=== PATIENT | male | born 1990 | race Hispanic/Latino ===

== ENCOUNTER 2018-05-26 08:20 | Outpatient (CLI) | payer OTHER ==
[2018-05-26] MEDS ORDERED: Gadobenate Dimeglumine 529 MG/1 ML (20ML VIAL) ONE ×2 (08:45→10:44)
[2018-05-26] MEDS ORDERED: EPINEPHrine 1 MG/ML AMP ONE (08:45)
[2018-05-26] MEDS ORDERED: Lidocaine 1% (PF) 30 ML VIAL ONE (08:45)
[2018-05-26] MEDS ORDERED: Iopamidol 300 61% 50 ML VIAL FS ONE (08:45)
--- NOTE | 2018-05-26 14:26 | RAD ---
RIGHT SHOULDER ARTHROGRAM: 05/26/18 HISTORY: 28-year-old male with history of right shoulder pain. FLUOROSCOPY TIME: 0.8 minutes. DOSE: 117.2 uGy*m2. Following informed consent, the right shoulder was prepped and draped in the usual sterile fashion. L ocal anesthesia was obtained with 1% Xylocaine. A 22 gauge spinal needle was introduced in the anteri or superior glenohumeral joint. A mixture of iodinated and gadolinium contrast media was injected and confirmed to be intra-articular. No evidence for dago extension into the subacromial bursa. IMPRESSION: Successful right shoulder arthrogram. Patient tolerated the procedure well and is moved to MRI for po st arthrogram MRI to followup. POS: ABEL
--- NOTE | 2018-05-26 16:00 | MRI ---
RIGHT SHOULDER MRI POST ARTHROGRAM CONTRAST: 05/26/18 HISTORY: 28-year-old male with history of right shoulder pain. Exam performed following a right shoulder arthrogram. Rotator cuff appears intact. Very mild degenerative changes are noted of the AC joint with very sligh t downsloping of the lateral acromion with some very mild fluid and fat stranding in the subacrominal bursa. No evidence for rotator cuff tear. The visualized labrum appears unremarkable. Rotator cuff m uscles are within normal limits of signal and volume. There is a fairly prominent superior anterior f oramen incidentally noted. IMPRESSION: Mild AC joint arthrosis with minute fluid and some fat stranding in the subacrominal subdeltoid bursa . No evidence for rotator cuff or labral tear. No evidence for other significant acute internal deran gement. Subscapularis and biceps tendons are intact. POS: ABEL
== END 2018-05-26 08:21 | disposition home or self-care (01) ==
LOC: RAD 08:20
PROVIDERS: ATTEND Orthopaedic Surgery
DX: M25.511 Pain in right shoulder (principal); M19.011 Primary osteoarthritis, right shoulder
CPT/HCPCS: 23350; A9579; J0171; J2001; J7050

== ENCOUNTER 2019-09-07 14:32 | Outpatient (CLI) | payer BC ==
--- NOTE | 2019-09-07 15:36 | ULT ---
Exam: Testicular ultrasound HISTORY: Testicular pain COMPARISON: None TECHNIQUE: Sagittal and transverse imaging of the left and right hemiscrotum are performed. Testicula r Doppler is performed with grayscale, color-flow, Doppler imaging and spectral waveform analysis. FINDINGS: Right hemiscrotum: Testicle: Punctate echogenicity throughout the right testicle. No intratesticular masses. Right testicle measurements: 2.7 x 1.8 x 3.7 Right epididymis: Normal echotexture. 0.3 cm epididymal cyst Right epididymis measurements: 1.0 x 0.9 x 0.7 cm Hydrocele: None Left hemiscrotum: Left testicle: Scattered punctate echogenicity throughout the left testicle. No intratesticular mauricio s. Left testicle measurements: 2.0 x 4.2 x 2.6 cm Left epididymis: Normal echotexture. Left epididymis measurements:0.8 x 0.8 x 1.1 cm Hydrocele: None Testicular Doppler: There is symmetric vascular flow to the left and right testicle. IMPRESSION: 1. Punctate echogenic foci in the left and right testicle compatible with small testicular calcificat ions. Correlate for testicular microlithiasis. 2. No evidence of a testicular mass. 3. No significant hydrocele. 4. Symmetric vascular flow. Transcribed Date/Time: 09/07/2019 3:47 PM
== END 2019-09-07 14:33 | disposition home or self-care (01) ==
LOC: BICULT 14:32
PROVIDERS: ATTEND Family Medicine
DX: N50.819 Testicular pain, unspecified (principal); N50.89 Other specified disorders of the male genital organs
CPT/HCPCS: 76870; 93976